=== PATIENT | female | born 1955 | race Caucasian/White ===

== ENCOUNTER 2018-03-18 12:59 | Emergency (ER) | payer BC ==
[~2018-03-18] VITALS: Ht 162.6 cm; Wt 61.4 kg
[2018-03-18 13:30] VITALS: BP 166/84
[2018-03-18] MEDS ORDERED: TETanus/Pertussis (Acell)/Diphther VAC/PF (Tdap-Adult) 0.5ml syringe IM ONE (15:25)
[2018-03-18] MEDS ORDERED: LIDOcaine 1.5% w/epinephrine 1:200,000 5ml ampul IJ ONE (15:25)
[2018-03-18] MEDS ORDERED: LIDOcaine 1% w/epiNEPHrine 1:200,000 30ml vial IJ ONE (15:30)
[2018-03-18] MEDS ORDERED: ketorolac tromethamine 15mg/ml inj. IM ONE (16:00)
== END 2018-03-18 16:40 | disposition home or self-care (01) ==
LOC: ER 13:00
DX: S01.81XA Laceration without foreign body of other part of head, initial encounter (principal); S80.02XA Contusion of left knee, initial encounter; S60.211A Contusion of right wrist, initial encounter; I10 Essential (primary) hypertension; W01.198A Fall on same level from slipping, tripping and stumbling with subsequent striking against other object, initial encounter; Y93.89 Activity, other specified; Y92.89 Other specified places as the place of occurrence of the external cause; Y99.9 Unspecified external cause status
CPT/HCPCS: 12013; 90471; 90715; 96372; 99283; J1885; J3490

== ENCOUNTER 2019-02-08 10:51 | Emergency (ER) | payer BC ==
[~2019-02-08] VITALS: Ht 160 cm; Wt 65.0 kg
[2019-02-08 10:55] VITALS: BP 165/68
== END 2019-02-08 12:06 | disposition home or self-care (01) ==
LOC: ER 10:52
DX: S96.912A Strain of unspecified muscle and tendon at ankle and foot level, left foot, initial encounter (principal); I10 Essential (primary) hypertension; Z98.890 Other specified postprocedural states; X58.XXXA Exposure to other specified factors, initial encounter; Y93.89 Activity, other specified; Y92.89 Other specified places as the place of occurrence of the external cause; Y99.8 Other external cause status
CPT/HCPCS: 73620; 99283